=== PATIENT | female | born 1960 | race Caucasian/White ===

== ENCOUNTER 2018-11-13 01:25 | Inpatient (IN) | payer OTHER, MEDICAID ==
[2018-11-13 02:20] LABS: ADD MAN DIFF? NO
[2018-11-13 02:22] LABS: ABNORMAL IP MESSAGE 1; BASOPHILS % 0.5 % (0.0-2.0); EOSINOPHILS # 0.2 10^3/ul (0.0-0.5); EOSINOPHILS % 2.3 % (0.0-7.0); HEMATOCRIT 31.5 % (37.0-47.0); HEMOGLOBIN 10.1 g/dl (12.0-16.0); LYMPHOCYTES # 0.3 10^3/ul (0.8-2.9); LYMPHOCYTES % 4.5 % (15.0-51.0); MEAN CORPUSCULAR HEMOGLOBIN 30.9 pg (29.0-33.0); MEAN CORPUSCULAR HGB CONC 32.1 g/dl (32.0-37.0); MEAN CORPUSCULAR VOLUME 96.3 fl (82.0-101.0); MEAN PLATELET VOLUME 9.6 fl (7.4-10.4); MONOCYTE # 0.7 10^3/ul (0.3-0.9); MONOCYTES % 9.5 % (0.0-11.0); NEUTROPHIL # 6.2 10^3/ul (1.6-7.5); NEUTROPHILS % 82.7 % (39.0-77.0); PLATELET COUNT 165 10^3/UL (140-415); RED BLOOD COUNT 3.27 10^6/ul (4.20-5.40); RED CELL DISTRIBUTION WIDTH 17.7 % (11.5-14.5)
[2018-11-13 02:22] LABS: WHITE BLOOD COUNT 7.5 10^3/ul (4.8-10.8)
[2018-11-13 02:23] LABS: POSITIVE DIFF @See below
[2018-11-13 02:40] LABS: ALANINE AMINOTRANSFERASE 7 IU/L (13-69); ALBUMIN 4.4 g/dl (3.3-4.9); ALKALINE PHOSPHATASE 100 IU/L (42-121); ANION GAP 16 (5-13); ASPARTATE AMINO TRANSFERASE 22 IU/L (15-46); BILIRUBIN,INDIRECT 0.2 mg/dl (0-1.1); BILIRUBIN,TOTAL 0.2 mg/dl (0.2-1.3); BLOOD UREA NITROGEN 53 mg/dl (7-20); CALCIUM 10.1 mg/dl (8.4-10.2); CARBON DIOXIDE 27 mmol/L (21-31); CHLORIDE 90 mmol/L (97-110); CREATININE 7.17 mg/dl (0.44-1.00); Estimated GFR 6 mL/min (>60); GLUCOSE 120 mg/dl (70-220); SODIUM 133 mmol/L (135-144); TOTAL PROTEIN 8.4 g/dl (6.1-8.1)
[2018-11-13 03:11] LABS: POTASSIUM 6.7 mmol/L (3.5-5.1)
[2018-11-13] MEDS: CA CHLORIDE 10% 10 ML SYRINGE IV (03:23)
[2018-11-13] MEDS: DEXTROSE 50% 50 ML SYRINGE IV (03:24)
[2018-11-13] MEDS: SODIUM POLYSTYRENE 15 GM KIT (POWDER + SORBITOL) PO (03:24)
[2018-11-13] MEDS: NA BICARBONATE 8.4% 50 ML SYG IV (03:24)
[2018-11-13] MEDS: INSULIN REGULAR, HUMAN 100 UNIT/1 ML 3ML VIAL IVP (03:27)
[2018-11-13] MEDS ORDERED: ACETAMINOPHEN 325 MG TAB PO ×2 (04:00→06:00)
[2018-11-13] MEDS ORDERED: ONDANSETRON 4 MG INJ IV ×2 (04:00→06:00)
[2018-11-13] MEDS ORDERED: NACL 0.9% 3 ML SYG IV (06:00)
[2018-11-13] MEDS: [UNRECOGNIZED DRUG - REMARK] XX ×3 (07:00→23:00)
[2018-11-13 07:07] LABS: ANION GAP 12 (5-13); BLOOD UREA NITROGEN 53 mg/dl (7-20); CALCIUM 10.1 mg/dl (8.4-10.2); CARBON DIOXIDE 30 mmol/L (21-31); CHLORIDE 90 mmol/L (97-110); CREATININE 7.48 mg/dl (0.44-1.00); Estimated GFR 6 mL/min (>60); GLUCOSE 55 mg/dl (70-220); SODIUM 132 mmol/L (135-144)
[2018-11-13 07:10] LABS: POTASSIUM 6.2 mmol/L (3.5-5.1)
[2018-11-13] MEDS ORDERED: METOPROLOL 25 MG TAB PO (09:00)
[2018-11-13] MEDS: HEPARIN 5,000 UNIT/1 ML VIAL SC ×2 (09:33→21:00)
[2018-11-13 13:33] LABS: HEPATITIS B SURFACE ANTIGEN NEGATIVE (NEGATIVE)
[2018-11-13] MEDS: DIPHENHYDRAMINE 25 MG CAP PO (13:56)
[2018-11-13 16:15] LABS: HEPATITIS B SURFACE ANTIBODY INDETERMINATE (NEGATIVE)
[2018-11-13] MEDS ORDERED: BISACODYL 10 MG SUPP PR (16:30)
[2018-11-13] MEDS ORDERED: DIPHENHYDRAMINE 25 MG CAP PO (16:30)
[2018-11-13] MEDS ORDERED: ALBUTEROL/IPRATROPIUM (NEB) 3 ML AMP HHN (16:30)
[2018-11-13] MEDS ORDERED: DEXTROSE 50% 50 ML SYRINGE IV ×2 (17:00)
[2018-11-13] MEDS ORDERED: GLUCAGON 1 MG INJ IM (17:00)
[2018-11-13] MEDS ORDERED: GLUCOSE GEL 15 GRAM TUBE BUCCAL (17:00)
[2018-11-13] MEDS ORDERED: GLUCOSE GEL 15 GRAM TUBE PO ×2 (17:00)
[2018-11-13] MEDS: SEVELAMER 800 MG TAB PO (17:55)
[2018-11-13] MEDS: INSULIN ASPART [NOVOLOG] 3 ML PEN SC ×2 (17:55→21:00)
[2018-11-13] MEDS ORDERED: [UNRECOGNIZED DRUG - OTHER] PO (21:00)
[2018-11-13] MEDS: SENNA TAB PO ×2 (21:00→21:25)
[2018-11-13] MEDS ORDERED: NON-FORMULARY/PATIENT OWN MED (Salmeterol Xinaf/Fluticasone* (Advair*) 1 INH) INHALATION (21:00)
[2018-11-13] MEDS ORDERED: LACTOBACILLUS ACIDOPHILUS PO (21:00)
[2018-11-13] MEDS ORDERED: INSULIN GLARGINE [LANTus] (100 UNITS/ML) SYG SC (21:00)
[2018-11-13] MEDS: FLUTICASONE 0.05% 16 GM NAS SPRAY NASAL (21:24)
[2018-11-13] MEDS: GABAPENTIN 300 MG CAP PO (21:24)
[2018-11-13] MEDS: MINOXIDIL 2.5 MG TAB PO (21:25)
[2018-11-13] MEDS: hydrALAzine 20 MG INJ IV (21:26)
[2018-11-13] MEDS: ALBUTEROL/IPRATROPIUM (NEB) 3 ML AMP HHN (21:45)
[2018-11-13] MEDS: HYDROCODONE/APAP (7.5/325) TAB PO (22:39)
[2018-11-14] MEDS: ZOLPIDEM 5 MG TAB PO (00:01)
[2018-11-14] MEDS: ACCU-CHEK XX (02:00)
[2018-11-14] MEDS: hydrALAzine 20 MG INJ IV (03:28)
[2018-11-14] MEDS: HYDROCODONE/APAP (7.5/325) TAB PO ×2 (04:17→10:29)
[2018-11-14] MEDS: ALBUTEROL/IPRATROPIUM (NEB) 3 ML AMP HHN ×3 (06:23→12:48)
[2018-11-14 06:48] LABS: ADD MAN DIFF? NO
[2018-11-14 06:52] LABS: WHITE BLOOD COUNT 5.1 10^3/ul (4.8-10.8)
[2018-11-14 06:52] LABS: ABNORMAL IP MESSAGE 1; BASOPHIL # 0.1 10^3/ul (0.0-0.1); BASOPHILS % 1.2 % (0.0-2.0); EOSINOPHILS # 0.2 10^3/ul (0.0-0.5); EOSINOPHILS % 3.7 % (0.0-7.0); HEMATOCRIT 26.8 % (37.0-47.0); HEMOGLOBIN 8.5 g/dl (12.0-16.0); LYMPHOCYTES # 0.6 10^3/ul (0.8-2.9); MEAN CORPUSCULAR HGB CONC 31.7 g/dl (32.0-37.0); MEAN CORPUSCULAR VOLUME 97.8 fl (82.0-101.0); MEAN PLATELET VOLUME 9.4 fl (7.4-10.4); MONOCYTE # 0.6 10^3/ul (0.3-0.9); NEUTROPHIL # 3.6 10^3/ul (1.6-7.5); NEUTROPHILS % 71.7 % (39.0-77.0); PLATELET COUNT 135 10^3/UL (140-415); RED BLOOD COUNT 2.74 10^6/ul (4.20-5.40); RED CELL DISTRIBUTION WIDTH 17.4 % (11.5-14.5)
[2018-11-14 06:57] LABS: POSITIVE DIFF @See below
[2018-11-14] MEDS: [UNRECOGNIZED DRUG - REMARK] XX (07:00)
[2018-11-14 07:09] LABS: HEMOGLOBIN A1C 5.1 % (0-5.9)
[2018-11-14 07:17] LABS: ALANINE AMINOTRANSFERASE 11 IU/L (13-69); ALBUMIN 3.6 g/dl (3.3-4.9); ALBUMIN/GLOBULIN RATIO 1.12; ALKALINE PHOSPHATASE 80 IU/L (42-121); ANION GAP 12 (5-13); ASPARTATE AMINO TRANSFERASE 18 IU/L (15-46); BILIRUBIN,INDIRECT 0.4 mg/dl (0-1.1); BILIRUBIN,TOTAL 0.4 mg/dl (0.2-1.3); BLOOD UREA NITROGEN 26 mg/dl (7-20); CALCIUM 9.4 mg/dl (8.4-10.2); CARBON DIOXIDE 28 mmol/L (21-31); CHLORIDE 95 mmol/L (97-110); CHOL/HDL RATIO 2.3 RATIO; CHOLESTEROL 130 mg/dl (100-200); CREATININE 4.85 mg/dl (0.44-1.00); Estimated GFR 9 mL/min (>60); GLUCOSE 90 mg/dl (70-220); HDL CHOLESTEROL 55 mg/dl (35-98); LDL CHOLESTEROL,CALCULATED 56 mg/dl; SODIUM 135 mmol/L (135-144); TOTAL PROTEIN 6.8 g/dl (6.1-8.1); TRIGLYCERIDES 96 mg/dl (0-149)
[2018-11-14] MEDS: INSULIN ASPART [NOVOLOG] 3 ML PEN SC ×2 (07:53→11:50)
[2018-11-14] MEDS: SEVELAMER 800 MG TAB PO ×2 (07:55→11:50)
[2018-11-14] MEDS: FLUTICASONE 0.05% 16 GM NAS SPRAY NASAL (08:35)
[2018-11-14] MEDS: GABAPENTIN 300 MG CAP PO (08:37)
[2018-11-14] MEDS: ASCORBIC ACID 250 MG TAB PO (08:37)
[2018-11-14] MEDS: LANSOPRAZOLE 30 MG CAP PO (08:38)
[2018-11-14] MEDS: MULTIVIT/CA CARB/B CMPLX/FA TAB PO (08:38)
[2018-11-14] MEDS: MINOXIDIL 2.5 MG TAB PO (08:38)
[2018-11-14] MEDS: LOSARTAN 50 MG TAB PO (08:38)
[2018-11-14] MEDS: ESCITALOPRAM 10 MG TAB PO (08:39)
[2018-11-14] MEDS: CLOPIDOGREL 75 MG TAB PO (08:39)
[2018-11-14] MEDS: HEPARIN 5,000 UNIT/1 ML VIAL SC (08:43)
[2018-11-14] MEDS ORDERED: NON-FORMULARY/PATIENT OWN MED (Olmesartan Medoxomil (Benicar) 40 MG) PO (09:00)
[2018-11-14] MEDS ORDERED: DIPHENHYDRAMINE 50 MG INJ IV (09:30)
[2018-11-14] MEDS: NIFEdipine (XL) 30 MG TAB PO (10:28)
[2018-11-14] MEDS: AL HYDROX/MG HYDROX/SIMETH 30 ML CUP PO (16:29)
[2018-11-14] MEDS ORDERED: LACTOBACILLUS RHAMNOSUS CAP PO (21:00)
[2018-11-14] MEDS ORDERED: NIFEdipine (XL) 30 MG TAB PO (21:00)
== END 2018-11-14 17:31 | DRG 640 ==
LOC: E/R 01:25 → TEL 03:32
DX: E87.5 Hyperkalemia (principal); N18.6 End stage renal disease; G92 Toxic encephalopathy; I12.0 Hypertensive chronic kidney disease with stage 5 chronic kidney disease or end stage renal disease; R60.0 Localized edema; I16.0 Hypertensive urgency; F32.9 Major depressive disorder, single episode, unspecified; D63.1 Anemia in chronic kidney disease; E83.9 Disorder of mineral metabolism, unspecified; F17.200 Nicotine dependence, unspecified, uncomplicated; Z91.15 Patient's noncompliance with renal dialysis; Z99.2 Dependence on renal dialysis
CPT/HCPCS: 36415; 70450; 71045; 80048; 80053; 80061; 82962; 83036; 85025; 86706; 87340; 90935; 93005; 93306; 94640; 94664; 96374; 96375; 99285-25; G0378